=== PATIENT | male | born 1975 | race Two or more races ===

== ENCOUNTER 2016-08-30 08:55 | Emergency (ER) | payer OTHER ==
[~2016-08-30] VITALS: Ht 162.6 cm; Wt 77.1 kg
--- NOTE | 2016-08-30 08:55 | NUR ---
headache and fever since yesterday. nad noted. pt aao x4, amb with steady gait. rr even and unlabored. vss. pending md valladares.
[2016-08-30] MEDS ORDERED: IV NS 0.9% 1,000 ML ONE (09:22)
[2016-08-30] MEDS ORDERED: KETOROLAC TROMETHAMINE INJ 30 MG/ML VIAL ONE (09:22)
[2016-08-30] MEDS ORDERED: IV SET PRIMARY 1 EA INFUS.SET MC ONE (09:22)
[2016-08-30] MEDS ORDERED: IV NS 0.9% 1,000 ML BAG IV ONE (09:30)
[2016-08-30] MEDS ORDERED: KETOROLAC TROMETHAMINE INJ 30 MG/ML VIAL IV ONE (09:30)
[2016-08-30 09:34] LABS: BASOPHILS % (AUTO) 0.2 % (0.0-2.0); HEMATOCRIT 41 % (39-51); HEMOGLOBIN 13.9 g/dL (13.5-17.5); LYMPHOCYTES % (AUTO) 9.6 % (20.0-44.0); MEAN CORPUSCULAR HEMOGLOBIN 29 PG (26.0-33.0); MEAN CORPUSCULAR HGB CONC 34 g/dl (31.0-36.0); MEAN CORPUSCULAR VOLUME 84 fL (80-96); MONOCYTES # (AUTO) 0.6 /CMM (0.1-1.30); MONOCYTES % (AUTO) 6.4 % (2.0-12.0); NEUTROPHILS # (AUTO) 8.4 /CMM (1.8-8.9); NEUTROPHILS % (AUTO) 83.8 % (43.0-81.0); PLATELET COUNT (AUTO) 201 /CMM (150-450); RDW COEFFICIENT OF VARIATION 13.4 (11.5-15.0); RED BLOOD CELL COUNT(AUTO) 4.86 MIL/uL (4.5-6.0)
[2016-08-30 09:47] LABS: ALBUMIN 3.7 g/dL (3.4-5.0); BILIRUBIN,TOTAL 0.5 mg/dL (0.2-1.0); CALCIUM, SERUM 8.6 mg/dL (8.5-10.1); CREATININE 0.9 mg/dL (0.6-1.3); POTASSIUM 3.6 mmol/L (3.5-5.1); TOTAL PROTEIN, SERUM 7.9 g/dL (6.4-8.2)
[2016-08-30 12:21] VITALS: BP 129/71
--- NOTE | 2016-08-30 12:25 | NUR ---
Patient discharged to home in stable condition. Written and verbal after care instructions given. Patient verbalizes understanding of instruction. IV removed. Catheter intact and site benign. Pressure and 4x4 applied to site. No bleeding noted. ambulatory with steady gait. no further complaints.
== END 2016-08-30 12:21 | disposition home or self-care (01) ==
LOC: ER 08:59
DX: B34.9 Viral infection, unspecified (principal); R50.9 Fever, unspecified; F17.200 Nicotine dependence, unspecified, uncomplicated
CPT/HCPCS: 36415; 70450-TC; 71010-TC; 71020-TC; 80053-TC; 85025-TC; 86403-TC; 87070-TC; 87400; A4606; J1885; J7030; Z7610

== ENCOUNTER 2016-08-31 08:43 | Emergency (ER) | payer OTHER ==
[~2016-08-31] VITALS: Ht 162.6 cm; Wt 77.1 kg
[2016-08-31 08:44] VITALS: BP 133/93
== END 2016-08-31 09:36 | disposition home or self-care (01) ==
LOC: ER 08:45
DX: B34.9 Viral infection, unspecified (principal); F17.200 Nicotine dependence, unspecified, uncomplicated
CPT/HCPCS: A4606; Z7502; Z7610

== ENCOUNTER 2016-09-02 16:36 | Emergency (ER) | payer OTHER ==
[~2016-09-02] VITALS: Ht 162.6 cm; Wt 77.1 kg
[2016-09-02 16:48] VITALS: BP 128/80
[2016-09-02] MEDS ORDERED: ACETAMINOPHEN ES 500 MG TABLET ONE (17:00)
[2016-09-02] MEDS ORDERED: ACETAMINOPHEN ES 500 MG TABLET PO ONE (17:30)
== END 2016-09-02 17:20 | disposition home or self-care (01) ==
LOC: ER 16:38
DX: R50.9 Fever, unspecified (principal); F17.200 Nicotine dependence, unspecified, uncomplicated
CPT/HCPCS: 99282; A4606; Z7610

== ENCOUNTER 2022-05-20 12:05 | Emergency (ER) | payer MEDICAID, OTHER ==
[~2022-05-20] VITALS: Ht 165.1 cm; Wt 90.7 kg
--- NOTE | 2022-05-20 12:25 | NUR ---
BIB DAUGHTER C/O "Had chest pain since yesterday. Woke up with it. Pain worse now". AMBULATYORY, PLACED IN BED, ATTACHED TO MONITOR SHOWS NORMAL SINUS RHYTHM VT- 78. BREATHING EVEN AND UNLABORED SATURATING AT 97%RA. IN PAIN 10/22 PS.
--- NOTE | 2022-05-20 12:44 | NUR ---
IV STARTED. L AC 20G
--- NOTE | 2022-05-20 12:46 | NUR ---
BLOOD COLLECTED SENT TO LAB
[2022-05-20 12:55] LABS: BASOPHILS % (AUTO) 0.5 % (0.0-2.0); EOSINOPHILS % (AUTO) 1.9 % (0.0-6.0); HEMATOCRIT 43 % (39-51); HEMOGLOBIN 14.1 g/dL (13.5-17.5); LYMPHOCYTES # (AUTO) 2.3 K/uL (0.8-4.8); LYMPHOCYTES % (AUTO) 29.8 % (20.0-44.0); MEAN CORPUSCULAR HGB CONC 33 g/dl (31.0-36.0); MEAN CORPUSCULAR VOLUME 88 fL (80-96); MONOCYTES # (AUTO) 0.7 K/uL (0.1-1.30); MONOCYTES % (AUTO) 8.8 % (2.0-12.0); NEUTROPHILS # (AUTO) 4.6 K/uL (1.8-8.9); PLATELET COUNT (AUTO) 219 K/uL (150-450); RED BLOOD CELL COUNT(AUTO) 4.87 MIL/uL (4.5-6.0); WHITE BLOOD COUNT (AUTO) 7.8 K/uL (4.3-11.0)
--- NOTE | 2022-05-20 13:08 | NUR ---
[facility] AT BEDSIDE
[2022-05-20 13:11] LABS: ALANINE AMINOTRANSFERASE 53 U/L (12-78); ALBUMIN 3.9 g/dL (3.4-5.0); ALKALINE PHOSPHATASE 88 U/L (46-116); ASPARTATE AMINOTRANSFERASE 21 U/L (15-37); BILIRUBIN,DIRECT 0.1 mg/dL (0.0-0.2); BILIRUBIN,TOTAL 0.4 mg/dL (0.2-1.0); CALCIUM, SERUM 8.9 mg/dL (8.5-10.1); CARBON DIOXIDE 24 mmol/L (21-32); CHLORIDE 105 mmol/L (98-107); CREATININE 0.7 mg/dL (0.6-1.3); GLUCOSE 107 mg/dL (74-106); POTASSIUM 4.5 mmol/L (3.5-5.1); SODIUM SERUM 137 mmol/L (136-145); TOTAL PROTEIN, SERUM 7.2 g/dL (6.4-8.2); UREA NITROGEN, BLOOD 15 mg/dL (7-18)
[2022-05-20] MEDS ORDERED: KETOROLAC TROMETHAMINE INJ 30 MG/ML VIAL ONE (13:52)
[2022-05-20] MEDS ORDERED: KETOROLAC TROMETHAMINE INJ 30 MG/ML VIAL IV ONE (14:00)
--- NOTE | 2022-05-20 14:25 | NUR ---
MOVE SHEET SUBMITTED.
--- NOTE | 2022-05-20 14:26 | NUR ---
COVID SWAB COLLECTED AND SENT TO LAB
[2022-05-20] MEDS ORDERED: ASPIRIN 325 MG TABLET PO ONE (14:30)
[2022-05-20] MEDS ORDERED: ASPIRIN 325 MG TABLET ONE (14:38)
[2022-05-20] MEDS ORDERED: ASPI-1420 PO (15:16)
[2022-05-20] MEDS ORDERED: LOSA50TA39 PO (15:16)
[2022-05-20] MEDS ORDERED: ATOR10TA PO (15:16)
--- NOTE | 2022-05-20 15:26 | NUR ---
DR. ENCISO SPEAKING WITH DR. GARCIA.
--- NOTE | 2022-05-20 15:53 | NUR ---
CALLED [facility] [phone] DR. MELGAR WILL CALL US BACK.
--- NOTE | 2022-05-20 16:00 | NUR ---
DR. MELGAR SPEAKING WITH DR. GARCIA
--- NOTE | 2022-05-20 16:15 | NUR ---
[facility] [phone] REQUESTING COVID FAXED TO [phone]
--- NOTE | 2022-05-20 19:02 | NUR ---
[facility] [phone] FOR UPDATE.
--- NOTE | 2022-05-20 20:30 | NUR ---
[id number] [phone] EXPECTING CALLBACK FOR TRANSFER ETA
--- NOTE | 2022-05-20 21:13 | NUR ---
MAY CONTACT [facility] [phone] FOR UPDATE
--- NOTE | 2022-05-20 21:20 | NUR ---
ETA FOR ALS 2229 BY [facility],
[2022-05-20] MEDS ORDERED: MORPHINE SULFATE INJ 2 MG/ML DISP.SYRIN ONE (21:43)
--- NOTE | 2022-05-20 21:50 | NUR ---
CONTACTED [facility] [phone] FOR REPORT NO ONE ANSWERING THE PHONE
[2022-05-20] MEDS ORDERED: MORPHINE SULFATE INJ 2 MG/ML DISP.SYRIN IV ONE (22:00)
[2022-05-20 22:39] VITALS: BP 125/83
--- NOTE | 2022-05-20 22:52 | NUR ---
PATIENT PICKUP BY [facility] STAFF FOR TRANSFER TO [facility] FOR ROBERT IN A STABLE CONDITION- PAINFREE.
== END 2022-05-20 22:55 | disposition short-term general hospital (02) ==
LOC: ER 12:10
DX: R07.9 Chest pain, unspecified (principal); I10 Essential (primary) hypertension; F17.200 Nicotine dependence, unspecified, uncomplicated; E66.9 Obesity, unspecified; Z68.33 Body mass index [BMI] 33.0-33.9, adult; Z20.822 Contact with and (suspected) exposure to COVID-19
CPT/HCPCS: 99285; 96374; 71045; 96375; 87426; 93005 ×2; 85025; 80048; 80076; 85378; 36415; 84484; 83880; J1885; J2270; C9803